=== PATIENT | male | born 1960 | race Caucasian/White ===

== ENCOUNTER 2019-06-21 07:01 | Day surgery (SDC) | payer OTHER ==
[~2019-06-21] VITALS: Ht 154.9 cm; Wt 63.2 kg
[2019-06-21] VITALS (10 sets, daily range): BP systolic 99–118; BP diastolic 58–73; PULSE 52–60; RESP 12–18; Ht 154.9 cm; Wt 63.2 kg
[~2019-06-21 07:01] MED LIST: ATOR-2 PO; CARV3.12 PO; CLOP75TA27 PO
[2019-06-21] MEDS ORDERED: SOD CHLORIDE 0.9% 1,000 ML IV SCH (08:00)
[2019-06-21] MEDS ORDERED: CEFAZOLIN 2 GM/50 ML (PMX) 50 ML IVPB ONE (08:00)
[2019-06-21] MEDS ORDERED: BUPIVACAINE 0.5% (SDV) 30 ML INJ ONE (09:13)
[2019-06-21] MEDS ORDERED: LIDOCAINE 2% (MDV) 20 ML INJ ONE (09:13)
[2019-06-21] MEDS ORDERED: FENTAnyl 50 MCG/ML VIAL ONE (09:27)
[2019-06-21] MEDS ORDERED: MIDAZOLAM 1 MG/ML 2 ML INJ ONE (09:27)
[2019-06-21] MEDS ORDERED: CEFAZOLIN 1 GM INJ ONE (09:45)
[2019-06-21] MEDS ORDERED: HYDROCODONE/APAP (5/325) TAB PO ONE (10:00)
[2019-06-21] MEDS ORDERED: DIPHENHYDRAMINE 50 MG INJ IV PRN (10:00)
[2019-06-21] MEDS ORDERED: MEPERIDINE 25 MG INJ IV PRN (10:00)
[2019-06-21] MEDS ORDERED: ONDANSETRON 4 MG INJ IV PRN (10:00)
[2019-06-21] MEDS ORDERED: FENTAnyl 50 MCG/ML VIAL IV PRN (10:00)
[2019-06-21] MEDS ORDERED: HYDROmorphONE 1 MG/5 ML IV SYRINGE IV PRN ×2 (10:00)
== END 2019-06-21 11:33 | disposition home or self-care (01) ==
LOC: SDS 07:01
PROVIDERS: ATTEND Surgery
DX: D17.1 Benign lipomatous neoplasm of skin and subcutaneous tissue of trunk (principal); I10 Essential (primary) hypertension; E78.5 Hyperlipidemia, unspecified; I25.10 Atherosclerotic heart disease of native coronary artery without angina pectoris
CPT/HCPCS: 14000; J0690; J2250; J3010; Z7610; 88307